=== PATIENT | female | born 1985 | race Caucasian/White ===

== ENCOUNTER 2017-01-18 16:41 | Emergency (ER) | payer OTHER ==
[~2017-01-18] VITALS: Ht 154.9 cm; Wt 78.0 kg
[2017-01-18 18:25] VITALS: BP 131/71
== END 2017-01-18 19:39 | disposition home or self-care (01) ==
LOC: ER 16:41
DX: O99.712 Diseases of the skin and subcutaneous tissue complicating pregnancy, second trimester (principal); Z3A.17 17 weeks gestation of pregnancy; L23.9 Allergic contact dermatitis, unspecified cause
CPT/HCPCS: 99282